=== PATIENT | male | born 1970 ===

== ENCOUNTER 2019-06-12 06:14 | Day surgery (SDC) | payer OTHER ==
--- NOTE | 2019-06-11 17:30 | Pre-Procedure Note/Attestation ---
Pre-Procedure Note/Attestation Complete Prior to Procedure Planned Procedure: not applicable Procedure Narrative: 1. ORIF nasa fracture 2. Septoplasty 3. SMR inf right turbinate 4. SMR inf left turbinate Indications for Procedure Pre-Operative Diagnosis: 1 Nasal deformity 2. Septal deviation 3. Hypertrophied right inferior turbinate 4. Hypertrophied left inferior turbinate Attestation I attest that I discussed the nature of the procedure; its benefits; risks and complications; and alternatives (and the risks and benefits of such alternatives ), prior to the procedure, with the patient (or the patient's legal visitor services representative). I attest that, if there was a reasonable possibility of needing a blood transfusion, the patient (or the patient's legal visitor services representative) was given the [place] Department [employer] standardized written summary, pursuant to the Chad Zavalla Blood Safety Act ([place] Health and Safety Code # 1645, as amended). I attest that I re-evaluated the patient just prior to the surgery and that there has been no change in the patient's H&P by Dr. Gutierrez which have been sent to [facility] pre op last week. The H/P has been reviewed and approved by me. : Cesar Hdz MD Jun 11, 2019 17:30
--- NOTE | 2019-06-11 17:32 | Brief Operative Note ---
Immediate Post Operative Note Operative Note Chief Complaint: Nasal deformity, nasal airway obstruction Pre-op Diagnosis: 1 Nasal deformity 2. Septal deviation 3. Hypertrophied right inferior turbinate 4. Hypertrophied left inferior turbinate Procedure: 1. ORIF nasa fracture 2. Septoplasty 3. SMR inf right turbinate 4. SMR inf left turbinate Post-op Diagnosis: same as pre-op Surgeon: Cesar Hdz Supply Chain Specialist: none Additional Surgeons: none Anesthesiologist: Alla Anesthesia: general Specimen: none Complications: none Condition: stable Fluids: D5LR Estimated Blood Loss: volume - 30cc Drains: none Packing: Sibno Nasal gel Implant(s) used?: No Cesar Hdz MD Jun 11, 2019 17:32
--- NOTE | 2019-06-11 17:38 | Discharge Instructions ---
Discharge Instructions Discharge Instructions Follow up with: Dr. Hdz at his office 06/19/19 12:30 PM Diet: regular Resume Normal Activity?: No Activity: light activity Pneumonia Vaccine: pt refused vaccine Influenza Vaccine (Aug to Jan): pt refused vaccine Follow Up Orders Pt has printed instructions that were reviewed and given to pt. at his pre op visit last week. He also got Rx for Amox and [place] at that time. Return to Work/School on: Jun 26, 2019 Special Instructions ice to face x 48 hours For Surgical Patients Dressing Care: may change May shower: No For Congestive Heart Failure Reminder Report to your physician any weight gain of 5 pounds or more in one week. Cesar Hdz MD Jun 11, 2019 17:38
[2019-06-12] VITALS (11 sets, daily range): BP systolic 131–159; BP diastolic 67–93
[~2019-06-12] VITALS: Ht 165.1 cm; Wt 103.4 kg
[2019-06-12] MEDS ORDERED: LR 1000ml ONE (06:15)
[2019-06-12] MEDS ORDERED: LISINOPRIL10 MG ORAL (06:49)
[2019-06-12] MEDS ORDERED: fentaNYL 100 mcg/2 mL IV ONE (07:03)
[2019-06-12] MEDS ORDERED: Midazolam 2mg/2ml Inj ONE (07:03)
[2019-06-12] MEDS ORDERED: Ketorolac 30mg Inj ONE (07:05)
[2019-06-12] MEDS ORDERED: Lidocaine 1% MPF 10mg/ml 5ml ONE (07:05)
[2019-06-12] MEDS ORDERED: Propofol 200mg/20ml IV ONE (07:05)
[2019-06-12] MEDS ORDERED: Lidocaine 1% 10mg/ml/Epi 0.005mg/ml 30ml vial INJ ONE (07:12)
[2019-06-12] MEDS ORDERED: Cocaine HCl 4% 4ml vial TOPIC ONE (07:12)
[2019-06-12] MEDS ORDERED: Bupivacaine w/Epi 0.5% 30ml Vial INJ ONE (07:13)
[2019-06-12] MEDS ORDERED: ceFAZolin sod 1 GM in D5W 55 ML IV ONE (07:15)
[2019-06-12] MEDS ORDERED: Dexamethasone 4mg/ml vial IVP ONE (07:25)
[2019-06-12] MEDS ORDERED: Sterile Water Irrig 1000ml IRRIG ONE (07:46)
[2019-06-12] MEDS ORDERED: NS Irrig 1000ml ONE (07:46)
[2019-06-12] MEDS ORDERED: Dexamethasone 4mg/ml vial ONE (07:49)
[2019-06-12] MEDS ORDERED: LR 1000ml 1,000 ML IVLG SCH (08:11)
--- NOTE | 2019-06-12 08:11 | Anethesia Preoperative Eval ---
Anesthesia Pre-op PMH/ROS General Date of Evaluation: Jun 12, 2019 Time of Evaluation: 07:12 Anesthesiologist: Roge ASA Score: ASA 2 Mallampati Score Class I : Soft palate, uvula, fauces, pillars visible Class II: Soft palate, uvula, fauces visible Class III: Soft palate, base of uvula visible Class IV: Only hard plate visible Mallampati Classification: Class III Surgeon: Wilder Diagnosis: Nasal septum Fx Surgical Procedure: Septoplasty Anesthesia History: none Family History: no anesthesia problems Allergies: Coded Allergies: No Known Allergies (Unverified , 06/11/19) Medications: see eMAR Patient NPO?: Yes Past Medical History Cardiovascular: Reports: HTN - stable; Denies: CAD, CO, valve dz, arrhythmia, other Pulmonary: Reports: DOC; Denies: asthma, COPD, other Gastrointestinal/Genitourinary: Reports: GERD - mild; Denies: CRI, ESRD, other Neurologic/Psychiatric: Denies: dementia, CVA, depression/anxiety, TIA, other Endocrine: Denies: DM, hypothyroidism, steroids, other HEENT: Denies: cataract (L), cataract (R), glaucoma, [place] (L), [place] (R), other Hematology/Immune: Denies: anemia, DVT, bleeding disorder, other Musculoskeletal/Integumentary: Denies: OA, RA, DJD, DDD, edema, other Other: obesity PMH Narrative: as above PSxH Narrative: ORIF of bilateral wrists Fx Anesthesia Pre-op Phys. Exam Physician Exam Last Vital Signs Date Time Temp Pulse Resp B/P (MAP) Pulse Ox O2 Delivery O2 Flow Rate FiO2 06/12/19 06:49 Room Air 06/12/19 06:40 98.1 78 20 141/83 98 Constitutional: NAD Neurologic: CN 2-12 intact Cardiovascular: RRR, no M/R/G Respiratory: CTA Gastrointestinal: S/NT/ND Airway Exam Mallampati Score: Class III MO: full Neck: short ROM: limited Teeth: intact Dentures: no upper, no lower Anesthesia Pre-op A/P Labs see chart Studies Pre-op Studies: EKG - NSR Risk Assessment & Plan Assessment: ASA 2 Plan: GA with LMA Status Change Before Surgery: No Pre-Antibiotics Drug: Ancef 2gr. Decadrone 8mg. Given Within 1 Hr of Incision: Yes Time Given: 07:55 Joseph Guan MD Jun 12, 2019 08:11
[2019-06-12] MEDS ORDERED: DiphenhydrAMINE 50mg/ml Inj IVP PRN (08:15)
[2019-06-12] MEDS ORDERED: Ketorolac 30mg Inj IV PRN (08:15)
[2019-06-12] MEDS ORDERED: Meperidine 50mg/ml Inj(FOR RIGORS ONLY) IV PRN (08:15)
--- NOTE | 2019-06-12 08:59 | Immediate Post-Op Evaluation ---
Immediate Post-Op Evalulation Immediate Post-Op Evalulation Procedure: Septoplasty,turbinate ablasion Date of Evaluation: Jun 12, 2019 Time of Evaluation: 08:58 IV Fluids: 1000 Blood Products: none Estimated Blood Loss: 50 Urinary Output: none Blood Pressure Systolic: 146 Blood Pressure Diastolic: 86 Pulse Rate: 86 Respiratory Rate: 20 O2 Sat by Pulse Oximetry: 99 Temperature (Fahrenheit): 97.4 Pain Score (1-10): 2 Nausea: No Vomiting: No Complications none Patient Status: reacts, patent, none Hydration Status: adequate Joseph Guan MD Jun 12, 2019 08:59
[2019-06-12] MEDS ORDERED: HYDROcodone/Acetamin 5/325 tab ORAL PRN (09:15)
[2019-06-12] MEDS ORDERED: Metoclopramide 10mg/2ml Inj IVP PRN (09:15)
[2019-06-12] MEDS ORDERED: HYDROmorphone 1mg/ml Carpuject SUBQ PRN (09:15)
--- NOTE | 2019-06-12 10:07 | 48 Hour Post Anesthesia Eval ---
Post Anesthesia Evaluation Procedure: Septoplasty,turbinate ablasion Date of Evaluation: Jun 12, 2019 Time of Evaluation: 10:05 Blood Pressure Systolic: 153 0: 69 Pulse Rate: 76 Respiratory Rate: 20 Temperature (Fahrenheit): 97.5 O2 Sat by Pulse Oximetry: 98 Airway: patent Nausea: No Vomiting: No Pain Intensity: 2 Hydration Status: adequate Cardiopulmonary Status: stable Mental Status/LOC: patient returned to baseline Follow-up Care/Observations: n/a Post-Anesthesia Complications: none Follow-up care needed: ready to discharge Joseph Guan MD Jun 12, 2019 10:07
--- NOTE | 2019-06-12 16:30 | Operative Note - Dictated ---
DATE OF OPERATION: 06/12/2019 SURGEON: Cesar Hdz M.D. DIRECTOR OF CATEGORY MANAGEMENT: None. ANESTHESIOLOGIST: Dr. Cedillo. ANESTHESIA: LMA general anesthesia as well as 4 mL of 4% topical cocaine and 22 mL of a 50:50 mixture of 1% lidocaine with 1:100,000 epinephrine and Sensorcaine 0.5% with 1:200,000 epinephrine. INDICATION FOR SURGERY: The patient has significant septal deviation and collapse as well as nasal deformity secondary to trauma at work. PREOPERATIVE DIAGNOSES: The patient has significant septal deviation and collapse as well as nasal deformity secondary to trauma at work. POSTOPERATIVE DIAGNOSES: The patient has significant septal deviation and collapse as well as nasal deformity secondary to trauma at work. FINDINGS: Nasal bone fracture bilaterally, septal deviation with displaced vomers bilaterally, and septum, there was crack down the middle and folded upon itself. PROCEDURE: 1. Open reduction and internal fixation, nasal fracture. 2. Septoplasty. 3. Submucous resection, right inferior turbinate. 4. Submucous resection, left inferior turbinate. TECHNIQUE: The patient prepped and draped in the usual manner. A time-out was performed and all agreed as the procedure to be done as well as the equipment required. Initially, I injected the aforementioned lidocaine, Marcaine, and epinephrine mixture. I also placed 4 nasal pledgets, two in either nostril with 4 mL of 4% topical cocaine. These were accounted for at the end of the case. Initially, I made an incision in either inferior turbinate with a 15 blade and then 2 passes, each after coating with saline gel of a 45 radiofrequency wand for 10 seconds at a setting of 6. At this point, I was unable to put a butter knife and to outfracture the inferior turbinates because of this configuration of the septum. It actually was touching both sides with the vomer and those needed to be removed first. I made an incision on either vomer inferiorly in the Andrew incision and dissected subperiosteally and subperichondrally with a [place] elevator up over the vomer, down to septal cartilage and then back up. I was able to remove the lower 3 mm of the septal cartilage with a small angled scissors and a straight Una. I then used a small straight osteotome non-guarded to remove both vomers with a mallet. These pieces were removed and the septal flaps were brought back down and sewed back together with 4-0 plain suture x2. At this point, there was enough room to put a butter knife and outfracture the inferior turbinates, which was accomplished without difficulty. I now had a reasonable airway. I could put the suction easily through both nostrils. I then made between the cartilage incisions and low lateral medial incisions inside the nares. I then was able to use to elevate the periosteum such as it may be because it was fractured and scarred in over the nasal bone. I then used a straight guarded osteotome for medial osteotomies bilaterally and then a guarded osteotome to make a low lateral osteotomy bilaterally. I did need to use an Dony forceps putting a 4 x 4 over the outside of the nose to complete the fracture on either side. Additionally, I used [place]is[place] on the right and the left superiorly to the low lateral osteotomy to complete that. Nose was placed back into normal position. Nose was suctioned clear and sinonasal gel one syringe was placed between the two nostrils. I then proceeded to place a skin prep tape and stent on the nose. Sponge and needle count was correct. ESTIMATED BLOOD LOSS: 30 mL. COMPLICATIONS: None. DRAINS: None. CONDITION: The patient extubated and stable in the operating room prior to transfer to the recovery room. Cesar Hdz M.D. DR: Gage JOB#: [id number] CC:
== END 2019-06-12 11:15 | disposition home or self-care (01) ==
LOC: SUR 06:14
DX: J34.2 Deviated nasal septum (principal); M95.0 Acquired deformity of nose; I10 Essential (primary) hypertension; G47.33 Obstructive sleep apnea (adult) (pediatric); K21.9 Gastro-esophageal reflux disease without esophagitis; E66.9 Obesity, unspecified; Z68.37 Body mass index [BMI] 37.0-37.9, adult
CPT/HCPCS: 21336; 30140; 30520; J0690; J1100; J1885; J2250; J2704; J3010; 94003; 94150